=== PATIENT | male | born 1950 | race Caucasian/White ===

== ENCOUNTER → 2017-03-05 | Outpatient (CLI) | payer OTHER | END | disposition home or self-care (01) | LOC: LB 15:11 | DX: R39.198 Other difficulties with micturition (principal) | CPT/HCPCS: 84153 ==

== ENCOUNTER 2019-08-13 14:45 | Emergency (ER) | payer OTHER ==
[~2019-08-13] VITALS: Ht 185.4 cm; Wt 97.5 kg
[2019-08-13 15:05] VITALS: Ht 185.4 cm; Wt 97.5 kg
[2019-08-13 15:25] VITALS: BP 185/103
[2019-08-13 15:47] LABS: BASOPHIL % 0.4 % (0-2); PLATELET COUNT 143 x10^3mcL (130-400); RED CELL DISTRIBUTION WIDTH 12.6 % (11.5-14.5)
[2019-08-13 16:04] LABS: CARBON DIOXIDE 26.1 mmol/L (21-32); CHLORIDE SERUM 105 mmol/L (98-107); CREATININE SERUM 0.9 mg/dL (0.7-1.3); GFR1 > 60 mL/min; GLUCOSE SERUM 141 mg/dL (74-106); POTASSIUM SERUM 3.9 mmol/L (3.5-5.1); SODIUM SERUM 141 mmol/L (136-145)
[2019-08-13 16:08] LABS: ALBUMIN 3.7 g/dL (3.4-5.0); ALKALINE PHOSPHATASE 80 U/L (46-116); ALT/SGPT 22 U/L (16-63); AST/SGOT 21 U/L (15-37); BILIRUBIN TOTAL 0.4 mg/dL (0.20-1.00); TOTAL PROTEIN, SERUM 7.1 g/dL (6.4-8.2)
== END 2019-08-13 16:35 | disposition short-term general hospital (02) ==
LOC: ED 14:45
PROVIDERS: Emergency Medicine
DX: I21.09 ST elevation (STEMI) myocardial infarction involving other coronary artery of anterior wall (principal); I21.19 ST elevation (STEMI) myocardial infarction involving other coronary artery of inferior wall; I24.9 Acute ischemic heart disease, unspecified; I10 Essential (primary) hypertension; R11.10 Vomiting, unspecified; Z87.891 Personal history of nicotine dependence

== ENCOUNTER 2020-01-24 11:49 | Emergency (ER) | payer OTHER ==
[~2020-01-24] VITALS: Ht 185.4 cm; Wt 99.8 kg
[2020-01-24 12:02] VITALS: Ht 185.4 cm; Wt 99.8 kg
[2020-01-24 13:00] LABS: BASOPHIL % 0.2 % (0-2); PLATELET COUNT 135 x10^3mcL (130-400); RED CELL DISTRIBUTION WIDTH 13.2 % (11.5-14.5)
[2020-01-24 13:32] LABS: CALCIUM 8.5 mg/dL (8.5-10.1); CARBON DIOXIDE 24.9 mmol/L (21-32); CHLORIDE SERUM 103 mmol/L (98-107); CREATININE SERUM 0.9 mg/dL (0.7-1.3); GFR1 > 60 mL/min; GLUCOSE SERUM 155 mg/dL (74-106); POTASSIUM SERUM 4.3 mmol/L (3.5-5.1); SODIUM SERUM 138 mmol/L (136-145)
[2020-01-24 13:36] LABS: ALBUMIN 3.6 g/dL (3.4-5.0); ALKALINE PHOSPHATASE 97 U/L (46-116); ALT/SGPT 40 U/L (16-63); AST/SGOT 20 U/L (15-37); BILIRUBIN TOTAL 0.69 mg/dL (0.20-1.00); TOTAL PROTEIN, SERUM 7.2 g/dL (6.4-8.2)
[2020-01-24] MEDS ORDERED: GLUCOPHAGE500 MG PO (14:38)
[2020-01-24] MEDS ORDERED: BRILINTA90 M1 (14:39)
[2020-01-24] MEDS ORDERED: LIPITOR80 MG PO (14:41)
[2020-01-24] MEDS ORDERED: VERAPAMIL HCL180 M1 (14:42)
[2020-01-24] MEDS ORDERED: ASPIR 8181 MG PO (14:44)
[2020-01-24] MEDS ORDERED: COREG3.125 MG (14:44)
[2020-01-24] MEDS ORDERED: ZESTRIL30 MG PO (14:45)
[2020-01-24 15:52] VITALS: BP 158/97
== END 2020-01-24 15:52 | disposition home or self-care (01) ==
LOC: ED 11:49
PROVIDERS: Emergency Medicine
DX: S09.90XA Unspecified injury of head, initial encounter (principal); H11.31 Conjunctival hemorrhage, right eye; R07.89 Other chest pain; I10 Essential (primary) hypertension; Z98.890 Other specified postprocedural states; W18.09XA Striking against other object with subsequent fall, initial encounter; Y93.89 Activity, other specified; Y92.89 Other specified places as the place of occurrence of the external cause; Y99.8 Other external cause status
CPT/HCPCS: Q0092; Q9967